=== PATIENT | female | born 1935 | race African-American/Black ===

== ENCOUNTER 2016-12-06 18:19 | Inpatient (IN) | payer MEDICARE, MEDICAID ==
[~2016-12-06] VITALS: Ht 165.1 cm; Wt 90.3 kg
[~2016-12-06 18:19] MED LIST: ETOMIDATE 2MG/ML 10ML VIAL IV ONE; SUCCINYLCHOLINE CHLORIDE 200MG/10ML VIAL IV ONE
[2016-12-06] MEDS ORDERED: LOSA25TA12 PO (18:34)
[2016-12-06] MEDS ORDERED: TRAM50TA3 PO (18:34)
[2016-12-06] MEDS ORDERED: RIVA20TA PO (18:34)
[2016-12-06] MEDS ORDERED: FURO-152 PO (18:34)
[2016-12-06] MEDS ORDERED: IPRA0.2S51 IH (18:34)
[2016-12-06] MEDS ORDERED: FAMO20TA8 PO (18:34)
[2016-12-06] MEDS ORDERED: DOCU-150 PO (18:34)
[2016-12-06] MEDS ORDERED: DILT120C11 PO (18:34)
[2016-12-06] MEDS ORDERED: METF10002 PO (18:34)
[2016-12-06] MEDS ORDERED: GABA-531 PO (18:34)
[2016-12-06] MEDS ORDERED: VANCOMYCIN 1 G PREMIX 200 ML IV ONE (19:00)
[2016-12-06] MEDS ORDERED: LEVOFLOXACIN 750MG PREMIX 150 ML IV ONE (19:00)
[2016-12-06] MEDS ORDERED: SODIUM CHLORIDE 0.9% 1000ML BAG (SEPSIS BOLUS) IV ONE (19:00)
[2016-12-06] MEDS ORDERED: ACETAMINOPHEN 650MG SUPP PR STA (19:00)
[2016-12-06 19:24] LABS: BASOPHILS % 0.2 % (0.0-2.0); HEMATOCRIT. 51.2 % (36.0-48.0); HEMOGLOBIN. 16.6 g/dL (12.0-16.0); LYMPHOCYTES % 8.8 % (20.0-50.0); MEAN CORPUSCULAR VOLUME 95.7 fL (81.0-99.0); MEAN PLATELET VOLUME 9.4 fl (7.4-10.4); MONOCYTES % 7.7 % (2.0-8.0); NEUTROPHILS % 83.3 % (40.0-76.0); PLATELET 159 x1000/uL (130-400); RED BLOOD CELL COUNT 5.35 mill/uL (4.2-5.4); RED CELL DISTRIBUTION WIDTH 18.7 % (11.6-14.6)
[2016-12-06 19:28] LABS: INR 1.4; PROTHROMBIN TIME 14.2 sec
[2016-12-06 19:31] LABS: CARBON DIOXIDE 26 mEq/L (21-32); CHLORIDE 103 mEq/L (98-107)
[2016-12-06] MEDS ORDERED: MIDAZOLAM HCL 50 MG in DEXTROSE 5% WATER 40 ML IV ONE ×2 (19:45→20:15)
[2016-12-06 20:16] LABS: BG BASE EXCESS -4.5 mmol/L (-2.0-2.0); BG CARBOXYHEMOGLOBIN 0.5 % (0.5-1.5); BG DEOXYHEMOGLOBIN 0.4 % (0.0-5.0); BG FRACTION INSPIRED OXYGEN 100; BG METHEMOGLOBIN 0.5 % (0.0-1.5); BG OXYGEN SATURATION 99.6 % (92.0-98.5); BG OXYHEMOGLOBIN 98.6 % (94.0-97.0); BG PCO2 26.3 mmHg (35.0-45.0); BG PH 7.452 (7.350-7.450); BG PO2 278.8 mmHg (75.0-100.0); BG SAMPLE SITE LEFT RADIAL; BG TIDAL VOLUME(mL) 450 mL; BG TOTAL HEMOGLOBIN 13.1 g/dL (12.0-18.0); BG VENT MODE VENT - A/C; BG VENT RATE 14 set
[2016-12-06] MEDS ORDERED: SODIUM CHLORIDE 0.9% 500 ML IV ONE (20:45)
[2016-12-06] MEDS ORDERED: NOREPINEPHRINE 4 MG in DEXT 5% WATER 246 ML IV ONE ×2 (21:45→22:00)
[2016-12-06 22:46] LABS: CLARITY URINE CLOUDY (CLEAR); COLOR URINE DARK YELLOW (YELLOW); GLUCOSE URINE NEGATIVE (NEGATIVE); KETONES URINE NEGATIVE (NEGATIVE); LEUKOCYTE ESTERASE URINE 1+ (NEGATIVE); NITRITE URINE NEGATIVE (NEGATIVE); OCCULT BLOOD URINE 3+ (NEGATIVE); PROTEIN URINE 2+ (NEGATIVE); SPECIFIC GRAVITY URINE 1.018 (1.005-1.030)
[2016-12-07] VITALS (93 sets, daily range): BP systolic 79–124; BP diastolic 44–69
[2016-12-07] MEDS: BLOOD SUGAR DIAGNOSTIC STRIP TEST SCH ×4 (00:30→20:58)
[2016-12-07] MEDS ORDERED: ONDANSETRON HCL 4MG/2ML VIAL IV PRN (00:30)
[2016-12-07] MEDS ORDERED: DEXTROSE 50% WATER 50ML SYRINGE IV PRN (00:30)
[2016-12-07] MEDS: DEXT 5%/0.45% NACL KCL 20MEQ/L 1,000 ML IV SCH ×2 (01:15→22:00)
[2016-12-07] MEDS: INSULIN LISPRO 100 UNITS/ML SUBCUT SCH ×4 (02:30→21:00)
[2016-12-07] MEDS ORDERED: LEVAQUIN XX SCH (05:15)
[2016-12-07] MEDS: NOREPINEPHRINE 8 MG in DEXT 5% WATER 242 ML IV PRN (05:51)
[2016-12-07] MEDS: MIDAZOLAM HCL 50 MG in DEXTROSE 5% WATER 40 ML IV PRN ×2 (05:52→23:44)
[2016-12-07 05:57] LABS: BASOPHILS % 0.3 % (0.0-2.0); HEMATOCRIT. 41.8 % (36.0-48.0); HEMOGLOBIN. 13.5 g/dL (12.0-16.0); LYMPHOCYTES % 19.2 % (20.0-50.0); MEAN CORPUSCULAR HEMOGLOBIN 30.9 pg (28.0-32.0); MEAN CORPUSCULAR VOLUME 95.7 fL (81.0-99.0); MEAN PLATELET VOLUME 9.2 fl (7.4-10.4); MONOCYTES % 12.6 % (2.0-8.0); NEUTROPHILS % 67.9 % (40.0-76.0); PLATELET 120 x1000/uL (130-400); RED BLOOD CELL COUNT 4.37 mill/uL (4.2-5.4); RED CELL DISTRIBUTION WIDTH 19.4 % (11.6-14.6)
[2016-12-07] MEDS ORDERED: VANCOMYCIN 1 G PREMIX 200 ML IV SCH (06:00)
[2016-12-07 06:44] LABS: CARBON DIOXIDE 21 mEq/L (21-32); CHLORIDE 112 mEq/L (98-107); HDL CHOLESTEROL 53 mg/dL (40-59); LDL CHOLESTEROL 41 mg/dL (5-100); PHOSPHORUS 2.9 mg/dL (2.5-4.9)
[2016-12-07 06:56] LABS: T4 FREE 1.09 ng/dL (0.76-1.46); TOTAL IRON BINDING CAPACITY 252 ug/dL (250-450)
[2016-12-07] MEDS: PANTOPRAZOLE SODIUM 40 MG/VIAL IV SCH (08:54)
[2016-12-07 09:01] LABS: BG CARBOXYHEMOGLOBIN 0.3 % (0.5-1.5); BG DEOXYHEMOGLOBIN 1.6 % (0.0-5.0); BG FRACTION INSPIRED OXYGEN 50; BG HCO3 ACT 21.2 mmol/L (22.0-26.0); BG METHEMOGLOBIN 0.3 % (0.0-1.5); BG OXYGEN SATURATION 98.4 % (92.0-98.5); BG OXYHEMOGLOBIN 97.8 % (94.0-97.0); BG PCO2 28.8 mmHg (35.0-45.0); BG PH 7.484 (7.350-7.450); BG PO2 122.3 mmHg (75.0-100.0); BG SAMPLE SITE LEFT BRACHIAL; BG TIDAL VOLUME(mL) 450 mL; BG TOTAL HEMOGLOBIN 14.1 g/dL (12.0-18.0); BG VENT MODE VENT - A/C; BG VENT RATE 14 set
[2016-12-07] MEDS ORDERED: MAGNESIUM 4 G PREMIX 100 ML IV SCH (10:00)
[2016-12-07] MEDS: LEVOFLOXACIN 500MG PREMIX 100 ML IV SCH (11:49)
[2016-12-07] MEDS ORDERED: LEVOFLOXACIN 500MG PREMIX 100 ML IV SCH (19:00)
[2016-12-08] VITALS (93 sets, daily range): BP systolic 83–129; BP diastolic 45–70
[2016-12-08] MEDS: NOREPINEPHRINE 8 MG in DEXT 5% WATER 242 ML IV PRN ×4 (00:31→21:41)
[2016-12-08 05:20] LABS: BASOPHILS % 0.2 % (0.0-2.0); HEMOGLOBIN. 13.1 g/dL (12.0-16.0); LYMPHOCYTES % 12.1 % (20.0-50.0); MEAN CORPUSCULAR HEMOGLOBIN 30.6 pg (28.0-32.0); MEAN CORPUSCULAR VOLUME 93.7 fL (81.0-99.0); MEAN PLATELET VOLUME 9.5 fl (7.4-10.4); MONOCYTES % 4.9 % (2.0-8.0); NEUTROPHILS % 82.8 % (40.0-76.0); PLATELET 112 x1000/uL (130-400); RED BLOOD CELL COUNT 4.27 mill/uL (4.2-5.4); RED CELL DISTRIBUTION WIDTH 18.4 % (11.6-14.6)
[2016-12-08 05:40] LABS: CARBON DIOXIDE 24 mEq/L (21-32); CHLORIDE 110 mEq/L (98-107); PHOSPHORUS 1.4 mg/dL (2.5-4.9)
[2016-12-08 07:14] LABS: BG CARBOXYHEMOGLOBIN 0.1 % (0.5-1.5); BG DEOXYHEMOGLOBIN 5.8 % (0.0-5.0); BG HCO3 ACT 21.2 mmol/L (22.0-26.0); BG METHEMOGLOBIN 0.3 % (0.0-1.5); BG OXYGEN SATURATION 94.2 % (92.0-98.5); BG OXYHEMOGLOBIN 93.8 % (94.0-97.0); BG PCO2 28.7 mmHg (35.0-45.0); BG PH 7.487 (7.350-7.450); BG PO2 68.9 mmHg (75.0-100.0); BG SAMPLE SITE RIGHT RADIAL; BG TIDAL VOLUME(mL) 450 mL; BG TOTAL HEMOGLOBIN 13.7 g/dL (12.0-18.0); BG VENT MODE VENT - A/C; BG VENT RATE 8 set
[2016-12-08] MEDS: BLOOD SUGAR DIAGNOSTIC STRIP TEST SCH ×3 (08:35→17:46)
[2016-12-08] MEDS: VANCOMYCIN 1 G PREMIX 200 ML IV SCH (08:44)
[2016-12-08] MEDS: INSULIN LISPRO 100 UNITS/ML SUBCUT SCH ×3 (08:45→18:05)
[2016-12-08] MEDS: PANTOPRAZOLE SODIUM 40 MG/VIAL IV SCH (08:46)
[2016-12-08] MEDS ORDERED: POTASSIUM PHOS,M-BASIC-D-BASIC 30 MMOL in DEXT 5% WATER 500 ML IV SCH (09:00)
[2016-12-08 10:24] LABS: BG BASE EXCESS -2.2 mmol/L (-2.0-2.0); BG CARBOXYHEMOGLOBIN 0.1 % (0.5-1.5); BG DEOXYHEMOGLOBIN 3.3 % (0.0-5.0); BG HCO3 ACT 20.1 mmol/L (22.0-26.0); BG METHEMOGLOBIN 0.1 % (0.0-1.5); BG OXYGEN SATURATION 96.7 % (92.0-98.5); BG OXYHEMOGLOBIN 96.5 % (94.0-97.0); BG PCO2 27.8 mmHg (35.0-45.0); BG PH 7.477 (7.350-7.450); BG PO2 86.8 mmHg (75.0-100.0); BG SAMPLE SITE RIGHT BRACHIAL; BG TIDAL VOLUME(mL) 450 mL; BG TOTAL HEMOGLOBIN 13.1 g/dL (12.0-18.0); BG VENT MODE VENT - A/C; BG VENT RATE 8 set
[2016-12-08] MEDS: LEVOFLOXACIN 500MG PREMIX 100 ML IV SCH (10:38)
[2016-12-08] MEDS: ENOXAPARIN 40MG/0.4ML SYR SUBCUT SCH (10:39)
[2016-12-08 10:52] LABS: CLARITY URINE CLOUDY (CLEAR); COLOR URINE DARK YELLOW (YELLOW); GLUCOSE URINE NEGATIVE (NEGATIVE); KETONES URINE NEGATIVE (NEGATIVE); LEUKOCYTE ESTERASE URINE NEGATIVE (NEGATIVE); NITRITE URINE NEGATIVE (NEGATIVE); OCCULT BLOOD URINE 2+ (NEGATIVE); PROTEIN URINE 2+ (NEGATIVE); SPECIFIC GRAVITY URINE 1.025 (1.005-1.030)
[2016-12-08] MEDS: DEXT 5%/0.45% NACL KCL 20MEQ/L 1,000 ML IV SCH (21:42)
[2016-12-09] VITALS (87 sets, daily range): BP systolic 85–118; BP diastolic 47–75
[2016-12-09] MEDS: INSULIN LISPRO 100 UNITS/ML SUBCUT SCH ×4 (00:27→18:00)
[2016-12-09] MEDS: MIDAZOLAM HCL 50 MG in DEXTROSE 5% WATER 40 ML IV PRN (02:41)
[2016-12-09 04:46] LABS: BASOPHILS % 0.2 % (0.0-2.0); EOSINOPHILS % 0.1 % (0.0-5.0); HEMATOCRIT. 35.8 % (36.0-48.0); HEMOGLOBIN. 11.7 g/dL (12.0-16.0); LYMPHOCYTES % 11.6 % (20.0-50.0); MEAN CORPUSCULAR HEMOGLOBIN 30.9 pg (28.0-32.0); MEAN CORPUSCULAR VOLUME 94.1 fL (81.0-99.0); MONOCYTES % 3.6 % (2.0-8.0); NEUTROPHILS % 84.5 % (40.0-76.0); PLATELET 103 x1000/uL (130-400); RED CELL DISTRIBUTION WIDTH 17.8 % (11.6-14.6)
[2016-12-09 05:04] LABS: CARBON DIOXIDE 25 mEq/L (21-32); CHLORIDE 106 mEq/L (98-107); PHOSPHORUS 2.3 mg/dL (2.5-4.9)
[2016-12-09] MEDS: BLOOD SUGAR DIAGNOSTIC STRIP TEST SCH ×4 (06:00→18:22)
[2016-12-09 06:59] LABS: BG BASE EXCESS -1.5 mmol/L (-2.0-2.0); BG CARBOXYHEMOGLOBIN 0.3 % (0.5-1.5); BG DEOXYHEMOGLOBIN 2.8 % (0.0-5.0); BG FRACTION INSPIRED OXYGEN 50; BG HCO3 ACT 20.7 mmol/L (22.0-26.0); BG METHEMOGLOBIN 0.8 % (0.0-1.5); BG OXYGEN SATURATION 97.2 % (92.0-98.5); BG OXYHEMOGLOBIN 96.1 % (94.0-97.0); BG PH 7.486 (7.350-7.450); BG PO2 97.4 mmHg (75.0-100.0); BG SAMPLE SITE RIGHT BRACHIAL; BG TIDAL VOLUME(mL) 450 mL; BG TOTAL HEMOGLOBIN 12.9 g/dL (12.0-18.0); BG VENT MODE VENT - A/C; BG VENT RATE 8 set
[2016-12-09] MEDS: NOREPINEPHRINE 8 MG in DEXT 5% WATER 242 ML IV PRN ×2 (08:35→21:20)
[2016-12-09] MEDS: PANTOPRAZOLE SODIUM 40 MG/VIAL IV SCH (08:35)
[2016-12-09] MEDS: ENOXAPARIN 40MG/0.4ML SYR SUBCUT SCH (08:36)
[2016-12-09] MEDS: VANCOMYCIN 1 G PREMIX 200 ML IV SCH (08:53)
[2016-12-09] MEDS: LEVOFLOXACIN 500MG PREMIX 100 ML IV SCH (11:23)
[2016-12-09] MEDS ORDERED: POTASSIUM PHOS,M-BASIC-D-BASIC 20 MMOL in DEXT 5% WATER 243.3333 ML IV NR (11:30)
[2016-12-09] MEDS: DEXT 5%/0.45% NACL KCL 20MEQ/L 1,000 ML IV SCH (14:36)
[2016-12-10] VITALS (103 sets, daily range): BP systolic 83–128; BP diastolic 49–70
[2016-12-10] MEDS: BLOOD SUGAR DIAGNOSTIC STRIP TEST SCH ×4 (00:19→17:42)
[2016-12-10] MEDS: INSULIN LISPRO 100 UNITS/ML SUBCUT SCH ×4 (00:37→17:42)
[2016-12-10] MEDS: MIDAZOLAM HCL 50 MG in DEXTROSE 5% WATER 40 ML IV PRN ×2 (05:29→06:59)
[2016-12-10 05:30] LABS: BASOPHILS % 0.1 % (0.0-2.0); EOSINOPHILS % 0.3 % (0.0-5.0); HEMATOCRIT. 36.7 % (36.0-48.0); HEMOGLOBIN. 12.1 g/dL (12.0-16.0); LYMPHOCYTES % 9.9 % (20.0-50.0); MEAN CORPUSCULAR HEMOGLOBIN 30.9 pg (28.0-32.0); MEAN CORPUSCULAR VOLUME 93.5 fL (81.0-99.0); MEAN PLATELET VOLUME 10.1 fl (7.4-10.4); MONOCYTES % 3.5 % (2.0-8.0); NEUTROPHILS % 86.2 % (40.0-76.0); PLATELET 108 x1000/uL (130-400); RED BLOOD CELL COUNT 3.92 mill/uL (4.2-5.4); RED CELL DISTRIBUTION WIDTH 17.9 % (11.6-14.6)
[2016-12-10 06:31] LABS: CARBON DIOXIDE 22 mEq/L (21-32); CHLORIDE 103 mEq/L (98-107)
[2016-12-10 06:34] LABS: PHOSPHORUS 1.9 mg/dL (2.5-4.9)
[2016-12-10 07:26] LABS: CLARITY URINE CLOUDY (CLEAR); COLOR URINE DARK YELLOW (YELLOW); GLUCOSE URINE TRACE (NEGATIVE); KETONES URINE NEGATIVE (NEGATIVE); LEUKOCYTE ESTERASE URINE 1+ (NEGATIVE); NITRITE URINE NEGATIVE (NEGATIVE); OCCULT BLOOD URINE 2+ (NEGATIVE); PH URINE 5.5 (4.5-8.0); PROTEIN URINE 2+ (NEGATIVE); SPECIFIC GRAVITY URINE 1.023 (1.005-1.030)
[2016-12-10 07:27] LABS: BG BASE EXCESS -5.3 mmol/L (-2.0-2.0); BG CARBOXYHEMOGLOBIN 0.3 % (0.5-1.5); BG DEOXYHEMOGLOBIN 4.3 % (0.0-5.0); BG HCO3 ACT 17.2 mmol/L (22.0-26.0); BG METHEMOGLOBIN 0.4 % (0.0-1.5); BG OXYGEN SATURATION 95.7 % (92.0-98.5); BG PCO2 25.6 mmHg (35.0-45.0); BG PH 7.444 (7.350-7.450); BG PO2 77.7 mmHg (75.0-100.0); BG SAMPLE SITE RIGHT BRACHIAL; BG TIDAL VOLUME(mL) 450 mL; BG TOTAL HEMOGLOBIN 12.8 g/dL (12.0-18.0); BG VENT MODE VENT - A/C; BG VENT RATE 8 set
[2016-12-10] MEDS: PANTOPRAZOLE SODIUM 40 MG/VIAL IV SCH (09:00)
[2016-12-10] MEDS: VANCOMYCIN 1 G PREMIX 200 ML IV SCH (09:00)
[2016-12-10] MEDS: ENOXAPARIN 40MG/0.4ML SYR SUBCUT SCH (09:00)
[2016-12-10] MEDS: DEXT 5%/0.45% NACL KCL 20MEQ/L 1,000 ML IV SCH (11:43)
[2016-12-10] MEDS: NOREPINEPHRINE 8 MG in DEXT 5% WATER 242 ML IV PRN (13:57)
[2016-12-10] MEDS ORDERED: MAGNESIUM 2 G PREMIX 50 ML IV NR (14:00)
[2016-12-10] MEDS ORDERED: SODIUM PHOS,M-BASIC-D-BASIC 20 MM in DEXT 5% WATER 243.3333 ML IV NR (17:00)
[2016-12-11] VITALS (100 sets, daily range): BP systolic 80–141; BP diastolic 32–99
[2016-12-11] MEDS: BLOOD SUGAR DIAGNOSTIC STRIP TEST SCH ×4 (00:23→17:05)
[2016-12-11] MEDS: INSULIN LISPRO 100 UNITS/ML SUBCUT SCH ×4 (00:33→17:04)
[2016-12-11 06:16] LABS: CARBON DIOXIDE 23 mEq/L (21-32); CHLORIDE 104 mEq/L (98-107)
[2016-12-11] MEDS: NOREPINEPHRINE 8 MG in DEXT 5% WATER 242 ML IV PRN ×2 (06:23→21:15)
[2016-12-11 07:26] LABS: BG CARBOXYHEMOGLOBIN 0.2 % (0.5-1.5); BG DEOXYHEMOGLOBIN 1.5 % (0.0-5.0); BG HCO3 ACT 21.9 mmol/L (22.0-26.0); BG METHEMOGLOBIN 0.3 % (0.0-1.5); BG OXYGEN SATURATION 98.5 % (92.0-98.5); BG PCO2 31.2 mmHg (35.0-45.0); BG PH 7.464 (7.350-7.450); BG PO2 126.4 mmHg (75.0-100.0); BG SAMPLE SITE RIGHT RADIAL; BG TIDAL VOLUME(mL) 450 mL; BG TOTAL HEMOGLOBIN 12.5 g/dL (12.0-18.0); BG VENT MODE VENT - A/C; BG VENT RATE 8 set
[2016-12-11 07:35] LABS: BASOPHILS % 0.5 % (0.0-2.0); HEMOGLOBIN. 11.9 g/dL (12.0-16.0); LYMPHOCYTES % 10.4 % (20.0-50.0); MEAN CORPUSCULAR HEMOGLOBIN 31.7 pg (28.0-32.0); MEAN CORPUSCULAR VOLUME 93.1 fL (81.0-99.0); MEAN PLATELET VOLUME 11.3 fl (7.4-10.4); MONOCYTES % 4.1 % (2.0-8.0); PLATELET 164 x1000/uL (130-400); RED BLOOD CELL COUNT 3.76 mill/uL (4.2-5.4); RED CELL DISTRIBUTION WIDTH 17.7 % (11.6-14.6)
[2016-12-11] MEDS: PANTOPRAZOLE SODIUM 40 MG/VIAL IV SCH (09:33)
[2016-12-11] MEDS: ENOXAPARIN 40MG/0.4ML SYR SUBCUT SCH (09:33)
[2016-12-11] MEDS: VANCOMYCIN 1 G PREMIX 200 ML IV SCH (09:33)
[2016-12-11] MEDS: MIDAZOLAM HCL 50 MG in DEXTROSE 5% WATER 40 ML IV PRN (13:34)
[2016-12-11] MEDS ORDERED: SODIUM PHOS,M-BASIC-D-BASIC 20 MM in DEXT 5% WATER 243.3333 ML IV SCH (14:00)
[2016-12-11] MEDS ORDERED: FLUCONAZOLE/NS(NEO) 2MG/ML IVPB IV SCH (14:15)
[2016-12-11] MEDS: FLUCONAZOLE 100 MG/50ML BAG 50 ML IV SCH (16:54)
[2016-12-12] VITALS (97 sets, daily range): BP systolic 79–176; BP diastolic 34–112
[2016-12-12] MEDS: BLOOD SUGAR DIAGNOSTIC STRIP TEST SCH ×4 (00:38→17:43)
[2016-12-12] MEDS: INSULIN LISPRO 100 UNITS/ML SUBCUT SCH ×4 (00:38→17:43)
[2016-12-12] MEDS ORDERED: MIDAZOLAM HCL 50 MG in DEXTROSE 5% WATER 40 ML IV PRN (02:45)
[2016-12-12 04:46] LABS: CLARITY URINE TURBID (CLEAR); COLOR URINE YELLOW (YELLOW); GLUCOSE URINE NEGATIVE (NEGATIVE); KETONES URINE NEGATIVE (NEGATIVE); LEUKOCYTE ESTERASE URINE 2+ (NEGATIVE); NITRITE URINE NEGATIVE (NEGATIVE); OCCULT BLOOD URINE 2+ (NEGATIVE); PH URINE 5.5 (4.5-8.0); PROTEIN URINE 1+ (NEGATIVE)
[2016-12-12 05:39] LABS: BASOPHILS % 0.5 % (0.0-2.0); EOSINOPHILS % 0.9 % (0.0-5.0); HEMATOCRIT. 35.4 % (36.0-48.0); HEMOGLOBIN. 11.6 g/dL (12.0-16.0); LYMPHOCYTES % 13.6 % (20.0-50.0); MEAN CORPUSCULAR VOLUME 94.3 fL (81.0-99.0); MEAN PLATELET VOLUME 10.5 fl (7.4-10.4); MONOCYTES % 6.9 % (2.0-8.0); NEUTROPHILS % 78.1 % (40.0-76.0); PLATELET 137 x1000/uL (130-400); RED BLOOD CELL COUNT 3.75 mill/uL (4.2-5.4); RED CELL DISTRIBUTION WIDTH 17.7 % (11.6-14.6)
[2016-12-12 06:06] LABS: CARBON DIOXIDE 26 mEq/L (21-32); CHLORIDE 100 mEq/L (98-107); PHOSPHORUS 1.9 mg/dL (2.5-4.9)
[2016-12-12] MEDS: PANTOPRAZOLE SODIUM 40 MG/VIAL IV SCH (08:30)
[2016-12-12] MEDS: VANCOMYCIN 1 G PREMIX 200 ML IV SCH (08:30)
[2016-12-12] MEDS: ENOXAPARIN 40MG/0.4ML SYR SUBCUT SCH (08:31)
[2016-12-12] MEDS: NOREPINEPHRINE 8 MG in DEXT 5% WATER 242 ML IV PRN (08:32)
[2016-12-12] MEDS ORDERED: POTASSIUM PHOS,M-BASIC-D-BASIC 20 MMOL in DEXT 5% WATER 243.3333 ML IV ONE ×2 (10:00)
[2016-12-12] MEDS ORDERED: POTASSIUM PHOS M BASIC D BASIC IV NR (12:00)
[2016-12-12] MEDS ORDERED: SODIUM CHLORIDE 0.9% IV NR (12:00)
[2016-12-12] MEDS ORDERED: ALBUMIN HUMAN 25GM/100ML (25%) IV ONE (14:45)
[2016-12-12] MEDS ORDERED: ALBUMIN HUMAN 12.5G/250ML (5%) IV NR (14:46)
[2016-12-12] MEDS: FLUCONAZOLE 100 MG/50ML BAG 50 ML IV SCH (17:03)
[2016-12-13] VITALS (95 sets, daily range): BP systolic 78–133; BP diastolic 38–90
[2016-12-13] MEDS: BLOOD SUGAR DIAGNOSTIC STRIP TEST SCH ×4 (00:01→17:49)
[2016-12-13] MEDS: INSULIN LISPRO 100 UNITS/ML SUBCUT SCH ×4 (00:05→17:49)
[2016-12-13] MEDS: NOREPINEPHRINE 8 MG in DEXT 5% WATER 242 ML IV PRN (06:43)
[2016-12-13] MEDS: VANCOMYCIN 1 G PREMIX 200 ML IV SCH (08:22)
[2016-12-13] MEDS: PANTOPRAZOLE SODIUM 40 MG/VIAL IV SCH (08:22)
[2016-12-13] MEDS: ENOXAPARIN 40MG/0.4ML SYR SUBCUT SCH (08:22)
[2016-12-13 13:09] LABS: HSV TYPE 1 SPECIFIC AB IGG Negative: <0.91 index (0.00-0.90)
[2016-12-13] MEDS: FLUCONAZOLE 100 MG/50ML BAG 50 ML IV SCH (17:24)
[2016-12-14] VITALS (40 sets, daily range): BP systolic 89–136; BP diastolic 37–79
[2016-12-14] MEDS: BLOOD SUGAR DIAGNOSTIC STRIP TEST SCH ×4 (00:12→17:45)
[2016-12-14] MEDS: INSULIN LISPRO 100 UNITS/ML SUBCUT SCH ×4 (05:25→18:00)
[2016-12-14 06:56] LABS: CARBON DIOXIDE 26 mEq/L (21-32); CHLORIDE 100 mEq/L (98-107)
[2016-12-14] MEDS: PANTOPRAZOLE SODIUM 40 MG/VIAL IV SCH (08:48)
[2016-12-14] MEDS: VANCOMYCIN 1 G PREMIX 200 ML IV SCH (08:48)
[2016-12-14] MEDS: ENOXAPARIN 40MG/0.4ML SYR SUBCUT SCH (08:49)
[2016-12-14] MEDS: ALBUTEROL (0.083%) 2.5MG/3ML NEB HHN SCH ×3 (13:34→20:12)
[2016-12-14] MEDS: ACETYLCYSTEINE 100MG/ML 10% VIAL 4ML INH SCH (13:35)
[2016-12-14 15:03] LABS: PHOSPHORUS 2.1 mg/dL (2.5-4.9)
[2016-12-14] MEDS: FLUCONAZOLE 100 MG/50ML BAG 50 ML IV SCH (19:20)
[2016-12-15] VITALS: BP 108/58
[2016-12-15] MEDS: BLOOD SUGAR DIAGNOSTIC STRIP TEST SCH ×5 (00:18→23:39)
[2016-12-15] MEDS: ALBUTEROL (0.083%) 2.5MG/3ML NEB HHN SCH ×6 (00:27→20:18)
[2016-12-15 02:00] VITALS: BP 102/49
[2016-12-15] MEDS: INSULIN LISPRO 100 UNITS/ML SUBCUT SCH ×5 (06:42→23:44)
[2016-12-15 06:48] LABS: CARBON DIOXIDE 28 mEq/L (21-32); CHLORIDE 101 mEq/L (98-107); PHOSPHORUS 2.4 mg/dL (2.5-4.9)
[2016-12-15 06:50] LABS: BASOPHILS % 0.3 % (0.0-2.0); EOSINOPHILS % 0.3 % (0.0-5.0); HEMATOCRIT. 30.8 % (36.0-48.0); HEMOGLOBIN. 10.3 g/dL (12.0-16.0); LYMPHOCYTES % 13.4 % (20.0-50.0); MEAN CORPUSCULAR HEMOGLOBIN 31.5 pg (28.0-32.0); MEAN PLATELET VOLUME 8.8 fl (7.4-10.4); MONOCYTES % 4.7 % (2.0-8.0); NEUTROPHILS % 81.3 % (40.0-76.0); PLATELET 156 x1000/uL (130-400); RED BLOOD CELL COUNT 3.28 mill/uL (4.2-5.4)
[2016-12-15] MEDS: ACETYLCYSTEINE 100MG/ML 10% VIAL 4ML INH SCH ×2 (08:07→16:05)
[2016-12-15] MEDS: ENOXAPARIN 40MG/0.4ML SYR SUBCUT SCH (08:59)
[2016-12-15] MEDS: PANTOPRAZOLE SODIUM 40 MG/VIAL IV SCH (08:59)
[2016-12-15] MEDS: VANCOMYCIN 1 G PREMIX 200 ML IV SCH (10:43)
[2016-12-15] MEDS ORDERED: SODIUM PHOS,M-BASIC-D-BASIC 10 MM in DEXT 5% WATER 246.6667 ML IV NR (14:00)
[2016-12-15] MEDS ORDERED: MAGNESIUM 2 G PREMIX 50 ML IV NR (14:00)
[2016-12-15] MEDS: FLUCONAZOLE 100 MG/50ML BAG 50 ML IV SCH (17:36)
[2016-12-15 20:00] VITALS: BP 148/67
[2016-12-15 22:00] VITALS: BP 127/46
[2016-12-16] VITALS: BP 142/67
[2016-12-16] MEDS: ALBUTEROL (0.083%) 2.5MG/3ML NEB HHN SCH ×6 (00:23→20:28)
[2016-12-16] MEDS: ACETYLCYSTEINE 100MG/ML 10% VIAL 4ML INH SCH ×3 (00:23→15:52)
[2016-12-16 02:00] VITALS: BP_DIAS 60
[2016-12-16] MEDS: BLOOD SUGAR DIAGNOSTIC STRIP TEST SCH ×4 (05:44→23:48)
[2016-12-16] MEDS: INSULIN LISPRO 100 UNITS/ML SUBCUT SCH ×3 (05:55→18:00)
[2016-12-16 06:00] VITALS: BP 109/64
[2016-12-16 10:01] LABS: BG BASE EXCESS 7.5 mmol/L (-2.0-2.0); BG CARBOXYHEMOGLOBIN 0.3 % (0.5-1.5); BG DEOXYHEMOGLOBIN 1.4 % (0.0-5.0); BG FRACTION INSPIRED OXYGEN 50; BG HCO3 ACT 30.7 mmol/L (22.0-26.0); BG METHEMOGLOBIN 0.3 % (0.0-1.5); BG OXYGEN SATURATION 98.6 % (92.0-98.5); BG PCO2 37.8 mmHg (35.0-45.0); BG PH 7.528 (7.350-7.450); BG PO2 126.4 mmHg (75.0-100.0); BG PRESSURE SUPPORT 14; BG SAMPLE SITE RIGHT RADIAL; BG TIDAL VOLUME(mL) 450 mL; BG TOTAL HEMOGLOBIN 10.6 g/dL (12.0-18.0); BG VENT MODE VENT - SIMV; BG VENT RATE 6 set
[2016-12-16] MEDS: VANCOMYCIN 1 G PREMIX 200 ML IV SCH (10:02)
[2016-12-16] MEDS: PANTOPRAZOLE SODIUM 40 MG/VIAL IV SCH (10:03)
[2016-12-16] MEDS: ENOXAPARIN 40MG/0.4ML SYR SUBCUT SCH (10:03)
[2016-12-16 13:10] LABS: BG BASE EXCESS 3.6 mmol/L (-2.0-2.0); BG CARBOXYHEMOGLOBIN 0.3 % (0.5-1.5); BG DEOXYHEMOGLOBIN 5.8 % (0.0-5.0); BG HCO3 ACT 26.9 mmol/L (22.0-26.0); BG METHEMOGLOBIN 0.3 % (0.0-1.5); BG OXYGEN SATURATION 94.2 % (92.0-98.5); BG OXYHEMOGLOBIN 93.6 % (94.0-97.0); BG PH 7.492 (7.350-7.450); BG PO2 68.3 mmHg (75.0-100.0); BG PRESSURE SUPPORT 14; BG SAMPLE SITE RIGHT RADIAL; BG TIDAL VOLUME(mL) 450 mL; BG TOTAL HEMOGLOBIN 11.1 g/dL (12.0-18.0); BG VENT MODE VENT - SIMV; BG VENT RATE 4 set
[2016-12-16] MEDS: FLUCONAZOLE 100 MG/50ML BAG 50 ML IV SCH (16:45)
[2016-12-16 20:00] VITALS: BP 106/48
[2016-12-17] VITALS (8 sets, daily range): BP systolic 103–115; BP diastolic 54–62
[2016-12-17] MEDS: INSULIN LISPRO 100 UNITS/ML SUBCUT SCH ×5 (00:03→23:12)
[2016-12-17] MEDS: ALBUTEROL (0.083%) 2.5MG/3ML NEB HHN SCH ×6 (00:22→21:04)
[2016-12-17] MEDS: ACETYLCYSTEINE 100MG/ML 10% VIAL 4ML INH SCH ×3 (00:22→16:16)
[2016-12-17] MEDS: BLOOD SUGAR DIAGNOSTIC STRIP TEST SCH ×4 (05:31→23:12)
[2016-12-17 08:12] LABS: CLARITY URINE TURBID (CLEAR); COLOR URINE DARK YELLOW (YELLOW); GLUCOSE URINE NEGATIVE (NEGATIVE); KETONES URINE NEGATIVE (NEGATIVE); LEUKOCYTE ESTERASE URINE 3+ (NEGATIVE); NITRITE URINE NEGATIVE (NEGATIVE); OCCULT BLOOD URINE 3+ (NEGATIVE); PROTEIN URINE 1+ (NEGATIVE); SPECIFIC GRAVITY URINE 1.022 (1.005-1.030)
[2016-12-17] MEDS: PANTOPRAZOLE SODIUM 40 MG/VIAL IV SCH (09:21)
[2016-12-17] MEDS: VANCOMYCIN 1 G PREMIX 200 ML IV SCH (09:22)
[2016-12-17] MEDS: ENOXAPARIN 40MG/0.4ML SYR SUBCUT SCH (09:22)
[2016-12-17] MEDS ORDERED: MAGNESIUM 2 G PREMIX 50 ML IV ONE (09:45)
[2016-12-17] MEDS: FLUCONAZOLE 100 MG/50ML BAG 50 ML IV SCH (17:28)
[2016-12-18] VITALS (12 sets, daily range): BP systolic 100–149; BP diastolic 32–75
[2016-12-18] MEDS: ALBUTEROL (0.083%) 2.5MG/3ML NEB HHN SCH ×7 (00:56→21:20)
[2016-12-18] MEDS: ACETYLCYSTEINE 100MG/ML 10% VIAL 4ML INH SCH ×3 (00:56→15:48)
[2016-12-18] MEDS: INSULIN LISPRO 100 UNITS/ML SUBCUT SCH ×3 (06:00→17:21)
[2016-12-18] MEDS: BLOOD SUGAR DIAGNOSTIC STRIP TEST SCH ×3 (06:26→17:21)
[2016-12-18] MEDS: PANTOPRAZOLE SODIUM 40 MG/VIAL IV SCH (08:21)
[2016-12-18] MEDS: ENOXAPARIN 40MG/0.4ML SYR SUBCUT SCH (08:22)
[2016-12-18] MEDS: VANCOMYCIN 1 G PREMIX 200 ML IV SCH (08:22)
[2016-12-18] MEDS ORDERED: FUROSEMIDE 40MG TABLET PO SCH (10:30)
[2016-12-18 11:31] LABS: BASOPHILS % 0.4 % (0.0-2.0); EOSINOPHILS % 0.5 % (0.0-5.0); HEMOGLOBIN. 10.7 g/dL (12.0-16.0); MEAN CORPUSCULAR HEMOGLOBIN 30.9 pg (28.0-32.0); MEAN CORPUSCULAR VOLUME 95.4 fL (81.0-99.0); MEAN PLATELET VOLUME 8.7 fl (7.4-10.4); MONOCYTES % 5.8 % (2.0-8.0); NEUTROPHILS % 69.3 % (40.0-76.0); PLATELET 246 x1000/uL (130-400); RED BLOOD CELL COUNT 3.46 mill/uL (4.2-5.4); RED CELL DISTRIBUTION WIDTH 18.2 % (11.6-14.6)
[2016-12-18 11:47] LABS: CARBON DIOXIDE 32 mEq/L (21-32); CHLORIDE 98 mEq/L (98-107)
[2016-12-18] MEDS: FLUCONAZOLE 100 MG/50ML BAG 50 ML IV SCH (17:21)
[2016-12-19] VITALS (12 sets, daily range): BP systolic 86–122; BP diastolic 39–76
[2016-12-19] MEDS: BLOOD SUGAR DIAGNOSTIC STRIP TEST SCH ×4 (00:01→17:02)
[2016-12-19] MEDS: ALBUTEROL (0.083%) 2.5MG/3ML NEB HHN SCH ×6 (00:21→20:29)
[2016-12-19] MEDS: ACETYLCYSTEINE 100MG/ML 10% VIAL 4ML INH SCH ×3 (00:21→16:28)
[2016-12-19] MEDS: INSULIN LISPRO 100 UNITS/ML SUBCUT SCH ×4 (05:45→17:02)
[2016-12-19 06:09] LABS: BASOPHILS % 0.6 % (0.0-2.0); EOSINOPHILS % 0.5 % (0.0-5.0); HEMATOCRIT. 30.2 % (36.0-48.0); HEMOGLOBIN. 9.8 g/dL (12.0-16.0); LYMPHOCYTES % 20.2 % (20.0-50.0); MEAN CORPUSCULAR HEMOGLOBIN 31.1 pg (28.0-32.0); MEAN CORPUSCULAR VOLUME 95.4 fL (81.0-99.0); MEAN PLATELET VOLUME 8.5 fl (7.4-10.4); MONOCYTES % 7.8 % (2.0-8.0); NEUTROPHILS % 70.9 % (40.0-76.0); PLATELET 218 x1000/uL (130-400); RED BLOOD CELL COUNT 3.17 mill/uL (4.2-5.4); RED CELL DISTRIBUTION WIDTH 18.2 % (11.6-14.6)
[2016-12-19 06:38] LABS: CARBON DIOXIDE 34 mEq/L (21-32); CHLORIDE 100 mEq/L (98-107); VANCOMYCIN TROUGH 22.8 ug/mL (5.0-10.0)
[2016-12-19 09:15] LABS: BG BASE EXCESS 8.8 mmol/L (-2.0-2.0); BG CARBOXYHEMOGLOBIN 0.3 % (0.5-1.5); BG DEOXYHEMOGLOBIN 2.5 % (0.0-5.0); BG FRACTION INSPIRED OXYGEN 40; BG HCO3 ACT 32.8 mmol/L (22.0-26.0); BG METHEMOGLOBIN 0.3 % (0.0-1.5); BG OXYGEN SATURATION 97.5 % (92.0-98.5); BG OXYHEMOGLOBIN 96.9 % (94.0-97.0); BG PCO2 42.5 mmHg (35.0-45.0); BG PH 7.505 (7.350-7.450); BG PO2 99.6 mmHg (75.0-100.0); BG PRESSURE SUPPORT 10; BG SAMPLE SITE RIGHT RADIAL; BG TIDAL VOLUME(mL) 450 mL; BG TOTAL HEMOGLOBIN 10.5 g/dL (12.0-18.0); BG VENT MODE VENT - SIMV; BG VENT RATE 4 set
[2016-12-19] MEDS: VANCOMYCIN 1 G PREMIX 200 ML IV SCH (09:16)
[2016-12-19] MEDS: PANTOPRAZOLE SODIUM 40 MG/VIAL IV SCH (09:16)
[2016-12-19] MEDS: FUROSEMIDE 40MG/4ML VIAL IVP SCH (09:17)
[2016-12-19] MEDS: ENOXAPARIN 40MG/0.4ML SYR SUBCUT SCH (09:17)
[2016-12-19 11:39] LABS: BG BASE EXCESS 9.6 mmol/L (-2.0-2.0); BG CARBOXYHEMOGLOBIN 0.3 % (0.5-1.5); BG DEOXYHEMOGLOBIN 2.4 % (0.0-5.0); BG FRACTION INSPIRED OXYGEN 40; BG HCO3 ACT 33.8 mmol/L (22.0-26.0); BG METHEMOGLOBIN 0.1 % (0.0-1.5); BG OXYGEN SATURATION 97.6 % (92.0-98.5); BG OXYHEMOGLOBIN 97.2 % (94.0-97.0); BG PCO2 44.5 mmHg (35.0-45.0); BG PH 7.499 (7.350-7.450); BG PO2 111.1 mmHg (75.0-100.0); BG PRESSURE SUPPORT 10; BG SAMPLE SITE RIGHT RADIAL; BG TOTAL HEMOGLOBIN 10.3 g/dL (12.0-18.0); BG VENT MODE VENT - CPAP
[2016-12-20] VITALS (14 sets, daily range): BP systolic 84–130; BP diastolic 41–78
[2016-12-20] MEDS: INSULIN LISPRO 100 UNITS/ML SUBCUT SCH ×5 (00:09→23:45)
[2016-12-20] MEDS: ACETYLCYSTEINE 100MG/ML 10% VIAL 4ML INH SCH (00:27)
[2016-12-20] MEDS: ALBUTEROL (0.083%) 2.5MG/3ML NEB HHN SCH ×6 (00:27→19:49)
[2016-12-20] MEDS ORDERED: LORAZEPAM 2MG/ML CPJ IV PRN (04:30)
[2016-12-20] MEDS: BLOOD SUGAR DIAGNOSTIC STRIP TEST SCH ×5 (06:00→23:47)
[2016-12-20] MEDS: FUROSEMIDE 40MG/4ML VIAL IVP SCH (09:05)
[2016-12-20] MEDS: ENOXAPARIN 40MG/0.4ML SYR SUBCUT SCH (09:05)
[2016-12-20] MEDS: PANTOPRAZOLE SODIUM 40 MG/VIAL IV SCH (09:05)
[2016-12-20] MEDS ORDERED: VANCOMYCIN 1250MG in DEXTROSE 5% WATER 250ML IV SCH (21:00)
[2016-12-20] MEDS: CARVEDILOL 3.125 MG TABLET PO SCH (21:00)
[2016-12-21] VITALS (12 sets, daily range): BP systolic 91–114; BP diastolic 49–73
[2016-12-21] MEDS: ALBUTEROL (0.083%) 2.5MG/3ML NEB HHN SCH ×7 (00:10→23:58)
[2016-12-21] MEDS: INSULIN LISPRO 100 UNITS/ML SUBCUT SCH ×4 (06:05→23:59)
[2016-12-21] MEDS: BLOOD SUGAR DIAGNOSTIC STRIP TEST SCH ×4 (06:05→23:59)
[2016-12-21] MEDS: LOSARTAN POTASSIUM 25 MG TABLET PO SCH (09:00)
[2016-12-21] MEDS: CARVEDILOL 3.125 MG TABLET PO SCH ×2 (09:00→21:00)
[2016-12-21] MEDS: FUROSEMIDE 40MG/4ML VIAL IVP SCH (09:24)
[2016-12-21] MEDS: PANTOPRAZOLE SODIUM 40 MG/VIAL IV SCH (09:24)
[2016-12-21] MEDS: ENOXAPARIN 40MG/0.4ML SYR SUBCUT SCH (09:24)
[2016-12-22] VITALS (12 sets, daily range): BP systolic 98–130; BP diastolic 51–88
[2016-12-22] MEDS: ALBUTEROL (0.083%) 2.5MG/3ML NEB HHN SCH ×5 (04:04→19:47)
[2016-12-22] MEDS: INSULIN LISPRO 100 UNITS/ML SUBCUT SCH ×3 (05:37→18:14)
[2016-12-22] MEDS: BLOOD SUGAR DIAGNOSTIC STRIP TEST SCH ×3 (05:37→18:19)
[2016-12-22] MEDS: CARVEDILOL 3.125 MG TABLET PO SCH ×2 (09:00→21:43)
[2016-12-22] MEDS: LOSARTAN POTASSIUM 25 MG TABLET PO SCH (09:00)
[2016-12-22] MEDS ORDERED: LIDOCAINE HCL/PF 1% 2ML VIAL ONE (09:35)
[2016-12-22 09:44] LABS: BG BASE EXCESS 15.1 mmol/L (-2.0-2.0); BG CARBOXYHEMOGLOBIN 0.3 % (0.5-1.5); BG DEOXYHEMOGLOBIN 5.6 % (0.0-5.0); BG HCO3 ACT 39.6 mmol/L (22.0-26.0); BG METHEMOGLOBIN 0.3 % (0.0-1.5); BG OXYGEN SATURATION 94.4 % (92.0-98.5); BG OXYHEMOGLOBIN 93.8 % (94.0-97.0); BG PH 7.534 (7.350-7.450); BG PO2 69.8 mmHg (75.0-100.0); BG PRESSURE SUPPORT 12; BG SAMPLE SITE RIGHT RADIAL; BG TIDAL VOLUME(mL) 450 mL; BG TOTAL HEMOGLOBIN 11.2 g/dL (12.0-18.0); BG VENT MODE VENT - SIMV; BG VENT RATE 4 set
[2016-12-22] MEDS: PANTOPRAZOLE SODIUM 40 MG/VIAL IV SCH (10:10)
[2016-12-22] MEDS: ENOXAPARIN 40MG/0.4ML SYR SUBCUT SCH (10:11)
[2016-12-22] MEDS: FUROSEMIDE 40MG/4ML VIAL IVP SCH (10:11)
[2016-12-23] VITALS (12 sets, daily range): BP systolic 80–131; BP diastolic 30–59
[2016-12-23] MEDS: BLOOD SUGAR DIAGNOSTIC STRIP TEST SCH ×4 (00:15→18:57)
[2016-12-23] MEDS: INSULIN LISPRO 100 UNITS/ML SUBCUT SCH ×4 (00:17→18:00)
[2016-12-23] MEDS: ALBUTEROL (0.083%) 2.5MG/3ML NEB HHN SCH ×6 (00:43→20:43)
[2016-12-23] MEDS: LOSARTAN POTASSIUM 25 MG TABLET PO SCH (09:00)
[2016-12-23] MEDS: CARVEDILOL 3.125 MG TABLET PO SCH ×2 (09:00→21:52)
[2016-12-23] MEDS: PANTOPRAZOLE SODIUM 40 MG/VIAL IV SCH (11:22)
[2016-12-23] MEDS: FUROSEMIDE 40MG/4ML VIAL IVP SCH (11:22)
[2016-12-23] MEDS: ENOXAPARIN 40MG/0.4ML SYR SUBCUT SCH (11:23)
[2016-12-23] MEDS: MORPHINE SULFATE 100 MG in DEXT 5% WATER 90 ML IV PRN ×2 (14:44→22:54)
[2016-12-24] VITALS (11 sets, daily range): BP systolic 91–147; BP diastolic 37–55
[2016-12-24] MEDS: INSULIN LISPRO 100 UNITS/ML SUBCUT SCH ×4 (00:23→18:39)
[2016-12-24] MEDS: BLOOD SUGAR DIAGNOSTIC STRIP TEST SCH ×4 (00:24→18:02)
[2016-12-24] MEDS: ALBUTEROL (0.083%) 2.5MG/3ML NEB HHN SCH ×6 (00:51→20:45)
[2016-12-24] MEDS: LOSARTAN POTASSIUM 25 MG TABLET PO SCH (09:00)
[2016-12-24] MEDS: CARVEDILOL 3.125 MG TABLET PO SCH ×2 (09:00→20:16)
[2016-12-24] MEDS: PANTOPRAZOLE SODIUM 40 MG/VIAL IV SCH (10:04)
[2016-12-24] MEDS: FUROSEMIDE 40MG/4ML VIAL IVP SCH (10:04)
[2016-12-24] MEDS: ENOXAPARIN 40MG/0.4ML SYR SUBCUT SCH (10:04)
[2016-12-24] MEDS: MORPHINE SULFATE 100 MG in DEXT 5% WATER 90 ML IV PRN (13:20)
[2016-12-24] MEDS: LORAZEPAM 2MG/ML CPJ IV PRN (20:16)
[2016-12-25] VITALS: BP 104/55
[2016-12-25] MEDS: BLOOD SUGAR DIAGNOSTIC STRIP TEST SCH ×2 (00:23→06:00)
[2016-12-25] MEDS: INSULIN LISPRO 100 UNITS/ML SUBCUT SCH ×2 (00:28→06:00)
[2016-12-25] MEDS: LORAZEPAM 2MG/ML CPJ IV PRN (00:33)
[2016-12-25] MEDS: ALBUTEROL (0.083%) 2.5MG/3ML NEB HHN SCH ×2 (00:57→05:23)
[2016-12-25 02:00] VITALS: BP 97/50
[2016-12-25] MEDS: MORPHINE SULFATE 100 MG in DEXT 5% WATER 90 ML IV PRN (03:25)
[2016-12-25 04:00] VITALS: BP 84/37
== END 2016-12-25 13:52 | disposition expired | DRG 870 ==
LOC: ER 18:38 → CVICU 19:13 → ENRESERV 22:06 → 5EST 12-14 16:45
PROVIDERS: ADMIT Internal Medicine; ATTEND Internal Medicine
PROC: 5A1955Z Respiratory Ventilation, Greater than 96 Consecutive Hours (ICD-10-PCS; principal; 2016-12-06)
PROC: 0BH17EZ Insertion of Endotracheal Airway into Trachea, Via Natural or Artificial Opening (ICD-10-PCS; 2016-12-06)
PROC: 02HV33Z Insertion of Infusion Device into Superior Vena Cava, Percutaneous Approach (ICD-10-PCS; 2016-12-12)
PROC: B548ZZA Ultrasonography of Superior Vena Cava, Guidance (ICD-10-PCS; 2016-12-12)
DX: A41.9 Sepsis, unspecified organism (principal); J18.9 Pneumonia, unspecified organism; J96.01 Acute respiratory failure with hypoxia; R65.21 Severe sepsis with septic shock; G93.41 Metabolic encephalopathy; I21.3 ST elevation (STEMI) myocardial infarction of unspecified site; E43 Unspecified severe protein-calorie malnutrition; E87.4 Mixed disorder of acid-base balance; N39.0 Urinary tract infection, site not specified; Z99.11 Dependence on respirator [ventilator] status; E11.9 Type 2 diabetes mellitus without complications; E66.01 Morbid (severe) obesity due to excess calories; E78.5 Hyperlipidemia, unspecified; E83.39 Other disorders of phosphorus metabolism; E88.81 Metabolic syndrome and other insulin resistance; F03.90 Unspecified dementia, unspecified severity, without behavioral disturbance, psychotic disturbance, mood disturbance, and anxiety; F41.0 Panic disorder [episodic paroxysmal anxiety]; I11.0 Hypertensive heart disease with heart failure; I25.5 Ischemic cardiomyopathy; I48.0 Paroxysmal atrial fibrillation; I49.5 Sick sinus syndrome; I50.9 Heart failure, unspecified; Z51.5 Encounter for palliative care; Z66 Do not resuscitate; F31.9 Bipolar disorder, unspecified; K57.90 Diverticulosis of intestine, part unspecified, without perforation or abscess without bleeding; M19.90 Unspecified osteoarthritis, unspecified site; E05.90 Thyrotoxicosis, unspecified without thyrotoxic crisis or storm; Z74.01 Bed confinement status; Z82.49 Family history of ischemic heart disease and other diseases of the circulatory system; Z86.718 Personal history of other venous thrombosis and embolism; Z86.73 Personal history of transient ischemic attack (TIA), and cerebral infarction without residual deficits; Z87.81 Personal history of (healed) traumatic fracture; Z91.81 History of falling; Z95.0 Presence of cardiac pacemaker; I25.2 Old myocardial infarction; Z79.899 Other long term (current) drug therapy; Z88.0 Allergy status to penicillin; Z68.33 Body mass index [BMI] 33.0-33.9, adult
CPT/HCPCS: 31500; 36415; 36556; 36569; 36600; 51702; 70450; 71010; 74000; 76937; 78580; 80048; 80053; 80061; 80069; 80076; 80202; 81001; 82248; 82375; 82805; 82962; 83036; 83540; 83550; 83605; 83735; 83880; 84100; 84439; 84480; 84484; 84550; 85025; 85610; 85651; 86695; 86696; 86787; 87040; 87070; 87077; 87086; 87106; 93005; 93306; 94002; 94003; 94640; 96361; 96365; 96367; 96375; 99291; A6261; C1725; C9113; J0330; J1450; J1650; J1815; J1940; J1956; J2060; J2250; J2270; J2405; J3370; J3475; J3490; J7030; J7040; J7050; J7060; J7608; J7611; A4315